=== PATIENT | male | born 2005 | race African-American/Black ===

== ENCOUNTER 2025-01-04 20:09 | Emergency (ER) | payer BC, SELFPAY ==
[2025-01-04 20:10] VITALS: BP 139/81; PULSE 76; RESP 18; TEMP 36.6; O2SAT 98; BMI 28.0
--- NOTE | 2025-01-04 20:31 | EDS_ITS ---
HPI History of Present Illness Chief Complaint: Eye Problem Informant: patient Onset/Context/Timing Location: Left Eye Onset: Today Context: Sudden Onset Timing: Continuous Worsened by: Nothing Relieved by: Nothing Associated Symptoms Associated Symptoms - Eyes: Foreign body sensation and Redness; Negative for Burning, Crusting, Drainage, Eyelid swelling, Itching, Matting, Pain or Photophobia History of injury: Yes and Foreign body (Possible superglue in left eye) Visual correction: None Narrative Narrative: Patient presents with left eye redness. Patient states he was hanging decorations tonight and thinks the drop of superglue got into his left eye. Patient actually thinks it hit his upper eyelid and eyelashes. Patient states he is able to blink his eyes and move his eyes without any difficulty. Patient admits to some redness to his left eye. Patient denies any changes in his vision. Patient does not wear glasses or contacts. Patient admits to a foreign body sensation along his upper eyelid margin. Patient denies any matting or crusting. Patient denies any discharge or drainage. PFSH PFSH Medical History no medical history Allergy/AdvReac Type Severity Reaction Status Date / Time ibuprofen Allergy Mild HIVES Verified 01/04/25 20:13 Surgical History (Updated 01/04/25 @ 20:[address] Emiliano Nelson DO) Status post labral repair of shoulder Social History Smoking Status: Current some day smoker tobacco type: cigarettes ROS ROS ED Constitutional Constitutional ED: Denies chills or fever(s) Eyes Eyes: Denies blurry vision or change in vision ENT ENT ED: Denies rhinorrhea or sore throat Cardiovascular Cardiovascular: Denies chest pain or palpitations Respiratory/Chest Respiratory/Chest: Denies cough or dyspnea Gastrointestinal Gastrointestinal: Denies nausea or vomiting Genitourinary Genitourinary ED: Denies dysuria or hematuria Musculoskeletal Musculoskeletal: Denies back pain or neck pain Integumentary Denies abscess or rash Neurologic Neurologic: Denies headache(s) or weakness Allergic/Immunologic Allergic/Immunologic ED: Denies mouth swelling or urticaria EXAM Physical Exam Const Vital Signs: 01/04/25 20:10 Temperature 97.8 F Temperature Source Temporal Pulse Rate 76 Respiratory Rate 18 Blood Pressure 139/81 H Blood Pressure Mean 100 Pulse Ox 98 Oxygen Delivery Method Room Air Positive well nourished and well developed Constitutional Narrative: BMI is 28.1. General Appearance ED: well developed and NAD HEENT atraumatic Eyes Eyes Narrative: Pupils are equal, round, and reactive to light bilaterally. Extraocular muscles are intact. Conjunctiva was injected on the left. There are no foreign bodies noted. Anterior chamber was clear. There is no hyphema noted. Funduscopic examination was benign. Tetracaine and fluorescein dye was applied. Unseld on contamination, there is no foreign body noted. There is no corneal abrasion. Lashes and upper eyelids were clear. Neck supple and no JVD Neuro oriented x3, CN's II-XII intact bilaterally, moves all extremities and no sensory deficits noted Sensorium / Orientation: alert Motor Exam: strength 5/5 throughout MDM MDM MDM Narrative Medical decision making narrative: Differential diagnosis includes corneal abrasion, foreign body, and conjunctivitis. Treatment and Re-Evaluation Narrative: Patient was advised of his findings. Patient was given erythromycin ophthalmic ointment. Patient was instructed to apply it to his left eye 4 times daily. Patient was instructed to follow-up with his primary care physician in 2 to 3 days. Patient was instructed to return if worse in any way. Patient understood and was agreeable with the plan. All questions were answered. Discharge Plan Triage Chief Complaint: Eye Problem ED Provider: Emiliano Nelson Dx/Rx/DC Orders Clinical Impression: Acute conjunctivitis of left eye, Sensation of foreign body in left eye, Tobacco use Instructions: ED Conjunctivitis, Nonspecific Primary Care Provider: Care Physician,No Primary Referrals: NOT,DEFINED [Non-Staff, None] - 2 Days Print Language: Ukrainian Disposition Disposition: Home, Self Care
[2025-01-04] MEDS: Tetracaine 0.5% Ophthalmic Bottle 1 DRP OPHTHALMIC (20:36)
[2025-01-04] MEDS: Erythromycin Ophthalmic (NSY) 1 GM OPTH.TUBE 1 APPLIC LEFT EYE (21:14)
[2025-01-04 21:30] VITALS: BP 121/75; PULSE 73; RESP 14; TEMP 36.6; O2SAT 99
== END 2025-01-04 21:30 | disposition home or self-care (01) ==
PROVIDERS: Emergency Provider Emergency Medicine; Visit Provider Emergency Medicine
DX: H10.32 Unspecified acute conjunctivitis, left eye (principal); H57.8A2 Foreign body sensation, left eye; F17.210 Nicotine dependence, cigarettes, uncomplicated
CPT/HCPCS: 99282